=== PATIENT | female | born 1995 | race Caucasian/White ===

== ENCOUNTER → 2025-05-22 | Outpatient (REF) | payer BC ==
[2025-05-22 18:31] LABS: ALT/SGPT 14 U/L (7.0-40); AST/SGOT 17 U/L (<34); BASO # 0.0 10^3/uL (0.0-0.2); BASO % 0.4 % (0.0-1.0); CALCIUM LEVEL 8.6 MG/DL (8.5-10.1); CARBON DIOXIDE LEVEL 26 MMOL/L (20-31); CHLORIDE LEVEL 105 MMOL/L (98-107); CHOLESTEROL LEVEL 134 MG/DL (<200); CHOLESTEROL RISK RATIO 3.06 (<5); CREATININE FOR GFR 0.66 MG/DL (0.55-1.30); EOS # 0.0 10^3/uL (0.0-0.5); EOS % 0.7 % (0.0-3.0); GLOMERULAR FILTRATION RATE > 90.0 (>60); LDL CHOLESTEROL 82.5 MG/DL (<100); LYMPH # 1.4 10^3/uL (1.5-5.0); LYMPH % 25.4 % (24.0-44.0); MONO # 0.5 10^3/uL (0.0-0.8); MONO % 9.2 % (2.0-8.0); NEUTROPHILS # 3.5 10^3/uL (1.5-8.5); NEUTROPHILS % 64.1 % (36.0-66.0); NON-HDL-C 90.3 MG/DL; PLATELET COUNT, AUTOMATED 185 10^3/uL (150-450); POTASSIUM SERUM 3.9 MMOL/L (3.5-5.1); SODIUM LEVEL 143 MMOL/L (136-145); TRIGLYCERIDES LEVEL 39 MG/DL (<150)
[2025-05-22 18:58] LABS: ESTIMATED AVERAGE GLUCOSE 97.0 MG/DL (60-110)
== END ==
LOC: M SFHCLERA 09:11
PROVIDERS: ATTEND Internal Medicine
DX: Z00.00 Encounter for general adult medical examination without abnormal findings (principal)

== ENCOUNTER → 2025-08-31 | Outpatient (REF) | payer BC ==
[2025-08-31 17:34] LABS: BASO # 0.0 10^3/uL (0.0-0.2); BASO % 0.5 % (0.0-1.0); EOS # 0.1 10^3/uL (0.0-0.5); EOS % 1.4 % (0.0-3.0); LYMPH # 1.5 10^3/uL (1.5-5.0); LYMPH % 24.0 % (24.0-44.0); MONO # 0.6 10^3/uL (0.0-0.8); MONO % 9.3 % (2.0-8.0); NEUTROPHILS # 4.2 10^3/uL (1.5-8.5); NEUTROPHILS % 64.6 % (36.0-66.0); PLATELET COUNT, AUTOMATED 252 10^3/uL (150-450)
[2025-08-31 17:55] LABS: IRON (FE) 66 UG/DL (50-170); PERCENT SATURATION 20.6 % (13.2-45.0)
[2025-08-31 18:04] LABS: VITAMIN B12 LEVEL > 2000 PG/ML (211-911)
[2025-09-04 15:32] LABS: HOMOCYST(E)INE SERUM 5.4 umol/L (< or = 11.0)
== END ==
LOC: M SFHCLERA 10:03
PROVIDERS: ATTEND Student in an Organized Health Care Education/Training Program
DX: D64.9 Anemia, unspecified (principal)